=== PATIENT | male | born 1980 | race Two or more races ===

== ENCOUNTER 2018-09-11 15:40 | Outpatient (CLI) | payer OTHER | END 2018-09-11 23:59 | disposition home or self-care (01) | LOC: RAD 15:40 | DX: K59.09 Other constipation (principal); R21 Rash and other nonspecific skin eruption; B00.9 Herpesviral infection, unspecified; H91.91 Unspecified hearing loss, right ear; R41.89 Other symptoms and signs involving cognitive functions and awareness; K13.0 Diseases of lips ==

== ENCOUNTER 2018-12-19 14:52 | Outpatient (CLI) | payer OTHER | END 2018-12-19 23:59 | disposition home or self-care (01) | LOC: CT 14:52 | DX: J84.10 Pulmonary fibrosis, unspecified (principal); R10.84 Generalized abdominal pain; J98.11 Atelectasis; H00.014 Hordeolum externum left upper eyelid; K13.0 Diseases of lips; I73.00 Raynaud's syndrome without gangrene; R21 Rash and other nonspecific skin eruption; Q60.0 Renal agenesis, unilateral | CPT/HCPCS: 71250; 71270; 76770 ==